=== PATIENT | female | born 1960 | race Caucasian/White ===

== ENCOUNTER 2016-08-04 09:49 | Day surgery (SDC) | payer OTHER ==
[~2016-08-04] VITALS: Ht 170.2 cm; Wt 76.6 kg
[2016-08-04] VITALS (8 sets, daily range): BP systolic 97–134; BP diastolic 55–74; PULSE 50–62; RESP 14–17; O2SAT 96–99
[~2016-08-04 09:49] MED LIST: ATEN50TA PO; BETA60OI3 TP; ESTR1TAB24 PO; Lactated Ringer's 1,000 ML IV SCH; PROG100C6 PO; UREA198C TP; USTE45DI SQ
[2016-08-04] MEDS ORDERED: Propofol 10,000 mCg/mL 20 mL Inj ONE (09:50)
[2016-08-04] MEDS ORDERED: Dexamethasone 4 mg/mL Inj ONE (09:50)
[2016-08-04] MEDS ORDERED: fentaNYL-PF 50 mCg/mL 2 mL Inj ONE (09:50)
[2016-08-04] MEDS ORDERED: Lidocaine PF 1% 30 mL Inj ONE (09:50)
[2016-08-04] MEDS ORDERED: Ondansetron 2 mg/mL 2 mL Inj ONE (09:50)
[2016-08-04] MEDS ORDERED: Lactated Ringer's 1,000 ML IV ONE (10:30)
--- NOTE | 2016-08-04 12:19 | PCM.HPANE ---
Patient Data Date of Service: Aug 04, 2016 Surgeon Admitting Provider: Attending Provider:Mikhail Bailey MD Primary Care Physician:Ana María Arthur Other Provider:Shiela Choudhary Anesthesia Reason for Visit Phylloides Tumor Ht/WT & BMI Height (Feet): 5 Height (Inches): 7.00 Weight (Kilograms): 76.6 Body Mass Index 26.00 Allergies Coded Allergies: No Known Allergies (Verified , 01/21/06) Past Anesthesia History Anesthesia History: Denies:: Anesthesia Reactions, Fam Anesthesia Reaction ( mother "over reacted- hallucinations"), Fam Malignant Hypertherm, Malignant Hyperthermia Diabetes History Hx Diabetes?: No MRSA MRSA: No Medications Hypertension Medication: Yes Home Meds Incl Beta Brad: Yes Date Beta Brad Taken: Aug 04, 2016 Time Beta Brad Taken: 0700 Reported Medications Urea 30 Gm Cream..g.30 Gm TP PRN skin irritation 08/03/16 Calcipotriene/Betamethasone (Taclonex Ointment)60 Gm Oint...g.60 Gm TP PRN skin irritation 08/03/16 Ustekinumab (Stelara)45 Mg/0.5 Ml Zeqiglo76 Mg SQ [id number] 08/03/16 Progesterone,Micronized (Progesterone)100 Mg [id number] Mg PO DAILY 08/03/16 Estradiol 1 Mg Tablet1 Mg PO DAILY Ref 0 08/03/16 Atenolol 50 Mg [id number] Mg PO DAILY #30 TABLET Ref 0 08/03/16 History HEENT History: Positive for:: Hearing Problem TMJ (occasionally grinds ) Denies:: Cataracts (forming-) Glaucoma Hx of Heart Problems?: Yes Cardiovascular History: Positive for:: Hypertension Denies:: AICD Abdominal Aortic Aneurism Atrial Fibrillation Cardiac Surgery Heart Murmur Irregular Heartbeat Pacemaker Peripheral Vascular Hx of Respiratory Problem?: No Respiratory History: Denies:: Asthma COPD Emphysema Oxygen Administration Pneumonia Tuberculosis Use of C-PAP Machine Use of Inhalers / NEBS Hx Neurologic Problems?: No Neurological History: Denies:: Alzheimer's Disease CVA Dizziness Headaches Multiple Sclerosis Parkinson's Disease Seizures TIA Hx of GI Problems?: No Gastrointestinal History: Positive for:: Gall Bladder Disease (gallbladder 20 years ago, had natural flush- no more problems) Denies:: Cirrhosis Gastroesphageal Reflux Gastrointestinal Bleeding Heartburn Hepatitis Hiatal Hernia Liver Disease Rectal Bleeding Hx of Problems?: No Genitourinary History: Denies:: Kidney Stones Urinary Tract Infection Female Hx: Positive for:: Problems with Breasts? (left breast current admission problem) Denies:: Currently (uterine ablation) Skin History: Positive for:: History Skin Disorders? (psoriasis - stelara last dose 10 days ago ) Hx Musculoskeletal Problems?: No Musculoskeletal History: Denies:: Back Injury Fibromyalgia Joint Replacement Musculoskeletal Trauma Myasthenia Gravis Osteoarthritis Rheumatoid Arthritis Systemic Lupus Hx of Psycho/Social Problems?: No Psycho Social History: Denies:: Anxiety Hx Depression Hx Surgeries?: Yes (uterine ablation, ) Hx Any Other Health Problems?: Yes Other History: Positive for:: Cancer (left breast ) Denies:: Thyroid Disease History Blood Transfusions: Positive for:: Accept Blood Products? Denies:: Blood Transfusions Hx Diabetes: No Hx Alcohol Use: YesAlcoholic Drinks Per Day: couple of drinks weekHx Substance Use: No Smoking Status: Never Smoker Have You Smoked inLast 12 mo: No Stop/Bang S-Snoring: Do You Snore Loudly: No T-Tired: feel tired, fatigued: No O-Obsered: Observed not breath: No P-Blood Pressure: treated: Yes B- Body Mass Index > 35 kg/m2: No A- Age over 50: Yes N- Neck Large Circumference: No G- Gender Male: No MICHEL Total Score: 2 MICHEL Risk Assessment: Low Risk, <3 Yes Risk Assessment Category Category 1A: Patient has history of documented sleep apnea, and HAS NOT received any narcotic, sedative or anesthesia administration during this stay. Category 1B: Patient has history of documented sleep apnea, and HAS received any narcotic , sedative or anesthesia administration during this stay Category 2: Patient has SUSPECTED Obstructive Sleep Apnea, and HAS received any narcotic , sedative or anesthesia administration during this stay. Category 3: Patient has SUSPECTED Obstructive Sleep Apnea and HAS NOT received narcotic, sedative or anesthesia administration during this stay. Category 4: Outpatient in Procedural Areas with known sleep apnea or who screen positive for High Risk via the STOP/BANG questionnaire. Exam Exam Vital Signs Vital Signs Date Time Temp Pulse Resp B/P Pulse Ox O2 Delivery O2 Flow Rate FiO2 08/04/16 10:27 36.2 50 14 134/74 99 Room Air General Appearance: Alert, Oriented X3, Cooperative, No Acute Distress HEENT/AIRWAY: MP 1 Lungs: Normal Air Movement Heart: Exam Unremarkable Meds/Labs/Diagnostics Admission Meds Current Medications Lactated Ringer's (Lr) 1,000 ml @ ud STK-MED ONCE IV Last administered on 08/04t 10:30; Start 08/04/16 at 10:30; Stop 08/04/16 at 10:31; Status DC Plan Impression Patient chart reviewed, patient interviewed and anesthestic plan with risks, benefits, and alternatives discussed, and informed consent obtained. NPO Status: confirmed before mn ASA Physical Status: ASA2 Mod Systemic Disease Anesthetic Plan: GA Bene/Risks/Altern/Consents: Yes HP Complete Prior to Induction: Yes Alban Roldan MD Aug 04, 2016 10:45
[2016-08-04] MEDS ORDERED: Lactated Ringer's 500 ML IV PRN (12:34)
[2016-08-04] MEDS ORDERED: Lactated Ringer's 1,000 ML IV SCH (12:34)
[2016-08-04] MEDS ORDERED: fentaNYL-PF 50 mCg/mL 2 mL Inj IVPUSH PRN (12:35)
[2016-08-04] MEDS ORDERED: Phenylephrine 10,000 mCg/mL Inj IVPUSH PRN (12:35)
[2016-08-04] MEDS ORDERED: Ondansetron 2 mg/mL 2 mL Inj IVPUSH PRN (12:35)
[2016-08-04] MEDS ORDERED: Dexamethasone 4 mg/mL Inj IVPUSH PRN (12:35)
[2016-08-04] MEDS ORDERED: EPHEDrine Sulfate 50 mg/mL Inj IVPUSH PRN (12:35)
[2016-08-04] MEDS ORDERED: HYDROmorphone 1 mg/mL Inj IVPUSH PRN (12:35)
[2016-08-04] MEDS ORDERED: MetoCLOpramide 5 mg/mL 2 mL Inj IVPUSH PRN (12:35)
[2016-08-04] MEDS ORDERED: Labetalol 5 mg/mL 4 mL Inj IV PRN (12:35)
[2016-08-04] MEDS ORDERED: Atropine 0.4 mg/mL Inj IVPUSH PRN (12:35)
[2016-08-04] MEDS ORDERED: Bupivacaine-MPF 0.5% 30 mL Inj INJ ONE (12:56)
[2016-08-04] MEDS ORDERED: HYDROcodone-APAP 5-325 mg Tablet PO PRN (13:25)
--- NOTE | 2016-08-04 13:34 | PCM.ANEP1 ---
Post Anesthesia Phase 1 PACU Phase 1 Assessment Date of Service: Aug 04, 2016 Vital Signs Vital Signs Date Time Temp Pulse Resp B/P Pulse Ox O2 Delivery O2 Flow Rate FiO2 08/04/16 10:27 36.2 50 14 134/74 99 Room Air Anesthetic Administered: GA Level of Alertness: Awake, talking FERGUSON's with Equal Strength: Yes Pain: No Nausea or Vomiting: No Oxygen Delivery: Nasal Cannula Lungs: Normal Air Movement Alban Roldan MD Aug 04, 2016 13:34
--- NOTE | 2016-08-04 13:34 | PCM.ANEP2 ---
Post Anesthesia Evaluation ASA/CMS Post Anesthesia Date of Service: Aug 04, 2016 VS in Patient's Normal Range?: Yes Resp Stable; Airway Patent?: Yes CV Function & Hydration Stable: Yes Mental Status Recovered?: Yes Pain control Satisfactory?: Yes N/V Control Satisfactory?: Yes Alban Roldan MD Aug 04, 2016 13:34
--- NOTE | 2016-08-04 14:26 | OP ---
[address] [address] OPERATIVE REPORT PATIENT: KRISTEN WHITMORE : 1960 MR#: [id number] ADMIT: 08/04/2016 JOB ID: [id number] DATE OF SURGERY: 08/04/2016 PREOPERATIVE DIAGNOSIS(ES): Benign phyllodes tumor, left breast. POSTOPERATIVE DIAGNOSIS(ES): Benign phyllodes tumor, left breast. PROCEDURE: Left wire localized segmental mastectomy with specimen mammogram. SURGEON: Mikhail Bailey MD REGISTERED NURSE SUPERVISOR: Capo Hemphill PA-C INDICATIONS: The patient is a 55-year-old female who had screening mammograms which demonstrated a left breast tumor adjacent to the areola. A biopsy was performed which showed it to be a benign phyllodes tumor, and after discussing options with the patient, it was elected to proceed with a wire localized segmental mastectomy. FINDINGS: Grossly 1 cm margins were obtained. If there is a close margin, I expect it to be anteriorly, as it was not very deep to the skin. The specimen mammogram showed the lesion to be removed and the biopsy clip within the specimen. DESCRIPTION OF PROCEDURE: At the beginning and end of the operation, the SCOAP checklist was completed. She received an LMA anesthetic, and using ChloraPrep, she was prepped and draped in the usual fashion. The wire was seen exiting laterally from the areola. A circumareolar incision was designed and infiltrated with 0.5% plain bupivacaine. After making the incision, a dissection was carried down into the substance of the breast with cautery, and then a lateral subcutaneous flap was created. The wire was identified and brought into the wound. Then, using cautery, the lesion was removed with every attempt to obtain 1 cm margins which grossly appeared to have been achieved. Hemostasis was obtained with cautery. Specimen mammography was obtained with results as stated above. Clips were placed into the segmental mastectomy wound for localization. The wound was then closed with interrupted subcutaneous 3-0 Vicryl sutures and running subcuticular 4-0 Vicryl and Dermabond. Estimated blood loss less than 10 cc. There were no apparent complications. The final sponge, needle, and instrument counts were announced as correct, and she was returned to recovery in stable condition. Critical assistance was provided by Capo Hemphill PA-C.
--- NOTE | 2016-08-05 07:03 | DRSVH ---
SPECIMEN LEFT BREAST: 08/04/2016 CLINICAL: Breast specimen. Correlation is made to exams dated: 08/04/2016 localization, 08/04/2016 mammogram - [facility] , 04/17/2016 ultrasound biopsy, and 03/27/2016 mammogram - [facility]. A lumpectomy specimen was imaged for the concerning circumscribed lobulated mass located in the left breast at 4 o'clock anterior depth. This was described on the previous ultrasound report. IMPRESSION: SPECIMEN The imaged specimen includes the lesion, a biopsy clip, and the distal portion of the localization wi re. This exam was interpreted at Station ID: [id number]. Lio garza/solo:08/04/2016 15:06:00 Additional referring physicians: ALEXANDRU RHOADES
--- NOTE | 2016-08-07 15:30 | PATH ---
SURGICAL PATHOLOGY Attending Physician:Amador Juárez CASE STATUS: Signed Out PATIENT NAME: KRISTEN WHITMORE PID: [id number] : 1960 DATE COLLECTED:08/04/2016 21:35 SPECIMEN: 1: Breast mass, oriented 2: Breast Mass, Excision CLINICAL HISTORY: PHYLLODES TUMOR, PHYLLODES TUMOR, LEFT BREAST 1). PHYLLODES TUMOR LEFT BREAST (DOUBLE STITCH: ANTEROMEDIAL, SHORT: LATERAL, LONG: SUPERIOR, OUT: 1307, TIME IN FORMALIN: 1315) 2). ADDITIONAL DEEP TISSUE LEFT BREAST (OUT: 1310, TIME IN FORMALIN: 1312) FINAL DIAGNOSIS: 1. Left Breast Tumor: Benign phyllodes tumor. Closest margins: Anterior = abutting tumor. Medial-0.1 cm. Other pathology: Fibrocystic changes. 2. Additional Deep Tissue, Left Breast: Fibrocystic changes. No evidence of neoplasia. ICD10 D24.2 NOTE: A benign phyllodes tumor has a propensity to recur (approximately 20%). Complete excision with wide margins (1-2 cm of normal tissue) is generally recommended. As part of routine quality reviewer, this case has been reviewed by Dr. Rodríguez Leigh, who concurs with the diagnosis. GROSS DESCRIPTION: 1). The specimen is received in formalin, labeled with the patient's name and "phyllodes tumor left breast". It consists of a 13.7 gram, price-yellow, lobulated fibrofatty tissue oriented with a double stitch designating anteromedial, short stitch designating lateral, and one designating superior. The specimen measures 3.9 cm superior to inferior by 3.6 cm medial to lateral by 3.1 cm anterior to posterior. There is a needle localization wire present on the anterior surface of the specimen. The specimen is inked as follows: purple-anterior, yellow-posterior, blue-superior, orange-inferior, green-medial, black-lateral. The specimen is serially sectioned from superior to inferior into eight slices to reveal a well defined, price, lobular lesion spanning slices 2-7 measuring 1.7 x 1.7 x 1.6 cm. The needle localization wire is embedded within the lesion in slice 4. The lesion appears to abut the anterior margin and comes to within 0.1 cm of the medial margin. The specimen is entirely submitted as follows: 1A-slice 1; 1B-slice2; 1C-slice 3; 1D-1E-slice 4; 1F; slice 5; 1G-1H-slice 6; 1I-slice 7; 1J-slice 8. 2). The specimen is received in formalin, labeled with the patient's name and "additional deep tissue left breast". It consists of one unoriented piece of price-yellow fatty tissue measuring 1.1 x 0.9 x 0.9 cm. The external surface is inked black. The specimen is trisected and entirely submitted in cassette 2A. Note: Approximate fixation time is 26 hours. PILI MICRO DESCRIPTION: 1). Sections are of a biphasic breast tissue characterized by elongated ductal lumina with a leaf-like pattern and intracanalicular stromal proliferation. There is a low mitotic rate (less than or equal to 1 per 10 high power dangelo) with no cytologic atypia. No stromal heterologous elements are present. The border is circumscribed. 2). Sections are of breast tissue with fibrocystic changes. No biphasic tumor identified. ICD-9 CODES: CPT CODES: 1: 08920 2: 67362 Electronically Signed Out Alysha Tariq MD [facility] [address], [place] [address] Technical component performed at [facility] [address], [place], [address]
== END 2016-08-04 23:59 | disposition home or self-care (01) ==
LOC: SAS 09:49
PROVIDERS: ATTEND Surgery
DX: D24.2 Benign neoplasm of left breast (principal); I10 Essential (primary) hypertension; J32.9 Chronic sinusitis, unspecified; L40.9 Psoriasis, unspecified; Z79.890 Hormone replacement therapy
CPT/HCPCS: 19125; 76098; J1100; J2250; J2405; J3010; J7120